=== PATIENT | female | born 1970 | race Caucasian/White ===

== ENCOUNTER 2017-07-24 13:29 | Emergency (ER) | payer BC ==
[~2017-07-24] VITALS: Ht 170.2 cm; Wt 85.1 kg
[~2017-07-24 13:29] MED LIST: ADVIL,NUPRIN,M200 MG PO; ALEVE220 MG PO; CYANOCOBALAM1000 MCG PO; EXCEDRIN MIGRA1 EAC3 PO; EXTRA STRENGTH500 M1 PO; HYDROCODON-ACE1 EAC7 PO; MELATONIN3 M4 PO; MIRALAX17 GM PO; MIRALAX255 GM PO; MOTRIN600 MG PO; MULTI VITAMIN1 EACH PO; MULTIVITAMIN1 EAC2 PO; OMEPRAZOLE40 M1 PO; PERCOCET 7.51 TABLET PO; PREMPRO 0.31 TABLET PO; Tylenol Extra Streng PO; VITAMIN B12 100MCG PO; Vicodin,Lortab 5/500 PO; ZOFRAN ODT4 MG PO
[2017-07-24 16:51] VITALS: BP 129/69
== END 2017-07-24 16:52 | disposition home or self-care (01) ==
LOC: RME 13:29 → EME 13:29 → RME 16:52
DX: S00.11XA Contusion of right eyelid and periocular area, initial encounter (principal); W18.30XA Fall on same level, unspecified, initial encounter; F32.9 Major depressive disorder, single episode, unspecified; K21.9 Gastro-esophageal reflux disease without esophagitis; F41.9 Anxiety disorder, unspecified
CPT/HCPCS: 70150; 99281; 99284